=== PATIENT | female | born 1945 | race Caucasian/White ===

== ENCOUNTER 2020-04-23 10:14 | Emergency (ER) | payer BC, OTHER ==
[2020-04-23 10:31] VITALS: TEMP 97.6; BMI 37.8
[2020-04-23] MEDS ORDERED: ACETAMINOPHEN 325 MG TABLET (FP) PO ONE (10:55)
[2020-04-23] MEDS ORDERED: LIDOCAINE 5% TOPICAL PATCH TP ONE (10:55)
[2020-04-23] MEDS ORDERED: LIDOCAINE 5% TOPICAL PATCH ONE (10:57)
[2020-04-23] MEDS ORDERED: ACETAMINOPHEN 325 MG TABLET (FP) ONE (10:57)
[2020-04-23 11:48] VITALS: BP 135/92
[2020-04-23 12:48] LABS: BASO % 1.2 % (0-2.0); EOS % 0.4 % (0-4.5); HEMATOCRIT 43.2 % (32.4-45.2); HEMOGLOBIN 14.4 GM/dl (10.7-15.3); LYMPH % 19.5 % (8-40); MCH 31.5 pg (25.7-33.7); MCHC 33.5 g/dl (32.0-36.0); MEAN CELL VOLUME 94.3 fl (80-96); MEAN PLT VOLUME 8.3 fl (7.5-11.1); MONO % 6.6 % (3.8-10.2); NEUT % 72.3 % (42.8-82.8); PLATELET COUNT 187 K/MM3 (134-434); RBC 4.58 M/mm3 (3.60-5.2); RDW 13.5 % (11.6-15.6); WHITE BLOOD COUNT 7.7 K/mm3 (4.0-10.8)
[2020-04-23 12:56] LABS: BILIRUBIN,TOTAL 1.5 mg/dl (0.2-1); CALCIUM 9.8 mg/dl (8.5-10); POTASSIUM 3.2 mmol/L (3.5-5.1); TOT PROT 7.4 g/dl (6.4-8.2)
[2020-04-23] MEDS ORDERED: SODIUM CHLORIDE 1,000 ML IV STA (13:10)
[2020-04-23] MEDS ORDERED: POTASSIUM CHLORIDE TABS 20 MEQ TABLET.ER (FP) PO ONE ×2 (13:40→13:50)
[2020-04-23 14:23] VITALS: PULSE 101
[2020-04-23] MEDS ORDERED: LIDOCAINE PATCH REMOVAL MC SCH (22:00)
== END 2020-04-23 14:41 | disposition home or self-care (01) ==
LOC: FER 10:14
PROC: 3E0337Z Introduction of Electrolytic and Water Balance Substance into Peripheral Vein, Percutaneous Approach (ICD-10-PCS; principal; 2020-04-23)
DX: M54.5 Low back pain (principal)
CPT/HCPCS: 36415; 72100-TC-FY; 80053; 84443; 85025; 96360; 99284-25

== ENCOUNTER 2020-04-28 10:30 | Emergency (ER) | payer OTHER ==
[2020-04-28 10:36] VITALS: BP 154/98; PULSE 107; TEMP 99.2; BMI 36.6
[2020-04-28] MEDS ORDERED: IBUPROFEN 400 MG TABLET (FP) PO ONE ×2 (12:08→12:25)
== END 2020-04-28 12:30 | disposition home or self-care (01) ==
LOC: FER 10:30
DX: S86.912A Strain of unspecified muscle(s) and tendon(s) at lower leg level, left leg, initial encounter (principal); Y99.9 Unspecified external cause status
CPT/HCPCS: 73560-TC-LT-FY; 99283-25

== ENCOUNTER 2023-09-04 17:43 | Emergency (ER) | payer BC, OTHER ==
[2023-09-04 17:57] VITALS: RESP 18; BMI 36.2
[2023-09-04 18:47] LABS: HEMATOCRIT 32.7 % (32.4-45.2); HEMOGLOBIN 10.9 G/dL (10.7-15.3); MCH 31.6 pg (25.7-33.7); MCHC 33.2 g/dl (32.0-36.0); MEAN CELL VOLUME 95.1 fl (80-96); MEAN PLT VOLUME 8.1 fl (7.5-11.1); PLATELET COUNT 155.9 10^3/uL (134-434); RBC 3.44 10^6/uL (3.60-5.2); RDW 14.3 % (11.6-15.6); WHITE BLOOD COUNT 6.1 10^3/uL (4.0-10.8)
[2023-09-04 18:59] LABS: PLATELET ESTIMATE ADEQUATE
[2023-09-04 19:05] LABS: ALBUMIN 3.9 g/dl (3.4-5.0); BILIRUBIN,TOTAL 0.9 mg/dl (0.2-1); CALCIUM 9.3 mg/dl (8.5-10.1); CREATININE 1.1 mg/dl (0.6-1.3); POTASSIUM 3.6 mmol/L (3.5-5.1); TOT PROT 6.8 g/dl (6.4-8.2)
[2023-09-04 19:31] LABS: ERYTHROCYTE SEDIMENTATION RATE 69 mm/hr (0-30)
[2023-09-04 19:53] VITALS: BP 165/89; PULSE 91; TEMP 97.7
[2023-09-04] MEDS ORDERED: DALBAVANCIN HCL 500 MG VIAL (RESTRICTED TO ID ONLY) IVPB ONE (19:58)
[2023-09-04] MEDS: DALBAVANCIN HCL 1,500 MG in DEXTROSE 5%-WATER - 500 ML IVPB ONE (20:20)
== END 2023-09-04 21:22 | disposition home or self-care (01) ==
LOC: FER 17:43
DX: L03.116 Cellulitis of left lower limb (principal); R60.0 Localized edema; Z20.822 Contact with and (suspected) exposure to COVID-19
CPT/HCPCS: 0241U-QW; 36415; 73590-TC-LT-FY; 73610-TC-LT-FY; 73630-TC-LT; 80053; 83605; 85025; 85651; 86140; 96365; 99284-25; J0875